=== PATIENT | male | born 1960 | race Caucasian/White ===

== ENCOUNTER 2017-05-13 12:42 | Emergency (ER) | payer MEDICAID ==
[~2017-05-13] VITALS: Ht 162.6 cm; Wt 70.0 kg
[2017-05-13] MEDS ORDERED: BUPIVACAINE 0.25% ONE (13:02)
[2017-05-13] MEDS ORDERED: LIDOCAINE 1%, 20ML ONE (14:16)
[2017-05-13 15:23] VITALS: BP 149/92
== END 2017-05-13 15:41 | disposition home or self-care (01) ==
LOC: ED 15:32
DX: S71.112A Laceration without foreign body, left thigh, initial encounter (principal); W27.0XXA Contact with workbench tool, initial encounter; Y93.89 Activity, other specified; Y92.89 Other specified places as the place of occurrence of the external cause; Y99.0 Civilian activity done for income or pay
CPT/HCPCS: 13121; 13122; 99285

== ENCOUNTER → 2018-10-09 | Outpatient (CLI) | payer MEDICAID ==
[~2018-10-09] MED LIST: OMNIPAQUE 350 MG/ML, 150 ML BOTTLE ONE
== END | disposition home or self-care (01) ==
LOC: CFH 09:24
PROVIDERS: ATTEND Physician Assistant
DX: N26.1 Atrophy of kidney (terminal) (principal); K40.90 Unilateral inguinal hernia, without obstruction or gangrene, not specified as recurrent
CPT/HCPCS: 74178; 82565; Q9967

== ENCOUNTER 2018-11-29 09:42 | Emergency (ER) | payer MEDICAID ==
[~2018-11-29] VITALS: Ht 162.6 cm; Wt 71.0 kg
--- NOTE | 2018-11-29 10:14 | NUR ---
BIB BY [facility] FOR URINARY RETENTION X 12 HOURS. REPORT BLADDER TUMOR REMOVED 7 DAYS AGO. BLADDER DISTENDED. REPORTS LAST VOID 6 HOURS AGO W/OUT FULL RELIEF. EMS GAVE 200FENTANYL/2MG VERSED. BLADDER SCAN OF 750ML. PROVIDER TO BEDSIDE- TO PLACE JASSO IMMEDIATELY
[2018-11-29] MEDS ORDERED: HYDR25TA6 PO (10:16)
[2018-11-29 10:37] LABS: BASOPHILS # (AUTO) 0.03 x10^3/uL (0-0.1); BASOPHILS % (AUTO) 0 % (0-1); EOSINOPHILS # (AUTO) 0.08 x10^3/uL (0-0.4); EOSINOPHILS % (AUTO) 1 % (1-7); LYMPHOCYTES # (AUTO) 1.53 x10^3/uL (1-3.4); LYMPHOCYTES % (AUTO) 15 % (22-44); MD NO; MEAN CORPUSCULAR HEMOGLOBIN 27.5 pg (27.5-34.5); MEAN CORPUSCULAR HGB CONC 32.9 g/dL (33.2-36.2); MEAN CORPUSCULAR VOLUME 83.5 fL (81-97); MEAN PLATELET VOLUME 7.9 fL (7.4-10.4); MONOCYTES # (AUTO) 0.73 x10^3/uL (0.2-0.8); MONOCYTES % (AUTO) 7 % (2-9); NEUTROPHILS # (AUTO) 7.91 x10^3/uL (1.8-6.8); NEUTROPHILS % (AUTO) 77 % (42-75); PLATELET COUNT 338 x10^3/uL (130-400); RED BLOOD COUNT 5.39 x10^6/uL (4.38-5.82); RED CELL DISTRIBUTION WIDTH 14.8 % (9.4-14.8)
[2018-11-29 10:43] LABS: ALBUMIN 3.5 g/dL (3.4-5.0); ANION GAP 11 mmol/L (5-15); CALCIUM 8.7 mg/dL (8.5-10.1); CHLORIDE 106 mmol/L (98-107)
--- NOTE | 2018-11-29 11:11 | NUR ---
AFTER JASSO PLACED-PATIENT IMMEDIATELY REDUCED TO 0/10-PATIENT THEN QUITE DROWSY (MOST LIKELY D/T NARCOTICS GIVEN BY EMS). VSS EXCEPT REQUIRING 2L NC. AROUSES TO VOICE-A+OX4) 16 MOLDOVAN JASSO REPLACED BY 22 MOLDOVAN IRRIGATION CATHETER D/T OCCLUSION OF CATHETER D/T BLOOD CLOTS PER PROVIDER REQUEST PATIENT UPDATED ON ESTIMATED POC CALL DALEY IN HAND/SIDE RAILS UP BROTHER AT BEDSIDE
[2018-11-29] MEDS ORDERED: LIDOCAINE 2%,20 ML JEL.PF.APP MM ONE ×2 (11:18→11:30)
[2018-11-29 11:19] LABS: MICROSCOPIC INDICATED
[2018-11-29 11:24] LABS: CULTURE INDICATED? YES
--- NOTE | 2018-11-29 12:30 | NUR ---
[address] WAY CATH CONTINUES TO DRAIN BLOOD TINGED URINE. PER PROVIDER REQUEST CATHETER IRRIGATED W/ 200ML OF STERILE NS WITH CHANGE IN URINE OUTPUT TO LINK PINK IN COLOR PATIENT REMAINS DROWSY/PAIN FREE VSS ON 2L NC SPOKE TO PROVIDER IN R/T TO PLAN: TO CONTINUE TO IRRIGATE CATHETER UNTIL BLOOD CEASES THEN HOPEFULLY DISCHARGE IF HE METABOLIZES NARCOTICS
--- NOTE | 2018-11-29 13:32 | NUR ---
task rn: PT SLEEPING ON GURNEY. RESPS EQUAL AND UNLABORED. NO ACUTE DISTRESS NOTED. WILL CONTINUE TO MONITOR.
--- NOTE | 2018-11-29 14:43 | NUR ---
PATIENT ROUSED DISPO PENDING. NOW MORE ALERT/INTERACTIVE TO ROAD TEST/PO CHALLENGE SHORTLY DAUGHTER TO BEDSIDE TO PROVIDE RIDE HOME
--- NOTE | 2018-11-29 15:30 | NUR ---
20F IRRIGATION JASSO EXCHANGED FOR 18F TRADITIONAL JASSO WHICH I CONNECTED TO LEG BAG. I PROVIDED PATIENT/FAMILY W/ STERILE SALINE, IRRIGATION SETUP, BACK UP CATHETER SECUREMENT DEVICE, LEG BAG AND URIMETER. PROVIDED EXHAUSTIVE EDUCATION ON WHAT TO WATCH FOR, HOW TO SOLVE IT AND WHAT REQUIRES REPEAT EVALUATION IN THE ER. PLAN TO ASSURE ADEQUATE URINE FLOW UNTIL UROLOGY APPOINTMENT THIS WEEK. BEFORE DISCHARGE PATIENT ABLE TO AMBULATE/TAKING PO FLUID W/OUT DIFFICULTY/ LEFT IN THE CARE OF HIS DAUGHTER
[2018-11-29 16:14] VITALS: BP 134/79
--- NOTE | 2018-11-29 16:14 | NUR ---
Patient/Caregiver given discharge instructions and they have confirmed that they understand the instructions. Discharge instructions performed by RICHA Lopez.
[2018-11-29] MEDS ORDERED: HYDR-3240 PO ×2 (22:22)
== END 2018-11-29 16:13 | disposition home or self-care (01) ==
LOC: ED 10:39
DX: R33.9 Retention of urine, unspecified (principal); R31.0 Gross hematuria; I10 Essential (primary) hypertension
CPT/HCPCS: 36415; 51702; 80048; 81001; 82040; 85025; 87086; 99284

== ENCOUNTER 2018-11-29 22:03 | Emergency (ER) | payer MEDICAID ==
[~2018-11-29] VITALS: Ht 162.6 cm; Wt 69.1 kg
[~2018-11-29 22:03] MED LIST changes: +HYDR25TA6 PO; -OMNIPAQUE 350 MG/ML, 150 ML BOTTLE ONE
[2018-11-29] MEDS ORDERED: HYDR-3240 PO ×2 (22:22)
--- NOTE | 2018-11-29 22:24 | NUR ---
pt presented with c/o blood in urine. seen here earlier today and wooten catheter was placed. pt stated " about an hour ago catheter was pushed out by 2 blood clots". monitors applied, siderails up x2, call light within reach. awaiting erp for eval and orders
--- NOTE | 2018-11-29 23:00 | NUR ---
provided pt with water and urinal, pt denies further needs at this time, call light within reach
--- NOTE | 2018-11-29 23:31 | NUR ---
pt sitting up on gurney, attempting to urinate, pt stated "my urine is bloody". provided pt with warm wash cloths per his request, denies further needs, monitors in place, call light within reach.
[2018-11-30] MEDS ORDERED: MAALOX/HYOSCYAMINE/LIDOCAINE 45 ML BTL ONE (00:49)
--- NOTE | 2018-11-30 00:52 | NUR ---
pt stated " i want to leave", pt also c/o heartburn. erp updated, order received for gi cocktail, pt agrees to stay at hospital and attempt to urinate. provided pt with more po fluids. monitors in place, call light within reach
[2018-11-30] MEDS ORDERED: MAALOX/HYOSCYAMINE/LIDOCAINE 45 ML BTL PO ONE (01:00)
--- NOTE | 2018-11-30 01:47 | NUR ---
pt stated " i'm ready to leave", pt being difficult and not taking in provided po fluids, stated he is unable to void. bladder scan completed on pt, urine volume 33 ml. erp updated on pt's bladder scan result and pt wanting to leave. Addendum: 11/30/18 at 0153 by GISELA pt refusing to have wooten catheter placed.
[2018-11-30 01:55] VITALS: BP 126/75
--- NOTE | 2018-11-30 02:14 | NUR ---
pt ambulating to d/c desk and informed this rn that he was able to void when he stood up. noted pt voided 150 ml bloody urine, erp updated.
== END 2018-11-30 02:17 | disposition home or self-care (01) ==
LOC: ED 23:11
DX: T83.091A Other mechanical complication of indwelling urethral catheter, initial encounter (principal); I10 Essential (primary) hypertension
CPT/HCPCS: 99284

== ENCOUNTER → 2019-10-30 | Outpatient (CLI) | payer MEDICAID ==
[~2019-10-30] MED LIST changes: +HYDR-3240 PO
== END | disposition home or self-care (01) ==
LOC: CFH 07:31
PROVIDERS: ATTEND Internal Medicine Cardiovascular Disease
DX: I35.8 Other nonrheumatic aortic valve disorders (principal); I10 Essential (primary) hypertension; I45.10 Unspecified right bundle-branch block
CPT/HCPCS: 93306

== ENCOUNTER → 2019-12-01 | Outpatient (CLI) | payer MEDICAID ==
[~2019-12-01] MED LIST changes: +REGADENOSON 0.4 MG/5 ML SYRINGE ONE
== END | disposition home or self-care (01) ==
LOC: CFH 12:32
PROVIDERS: ATTEND Registered Nurse
DX: Z01.810 Encounter for preprocedural cardiovascular examination (principal); I10 Essential (primary) hypertension
CPT/HCPCS: 78452; 93017; A9502; J2785